=== PATIENT | female | born 1990 | race Caucasian/White ===

== ENCOUNTER → 2021-08-04 | Outpatient (CLI) | payer OTHER ==
--- NOTE | 2021-08-04 13:55 | REP ---
INDICATION: ELSA HIP MASSES ? CYST VS SOLID. COMPARISON: None. TECHNIQUE: Sonographic evaluation of both right and left hip region over a palpable mass. FINDINGS: There are no cystic or solid masses. IMPRESSION: A negative ultrasound examination does not obviate further anatomical imaging with modalities such as gadolinium-enhanced MRI which should be considered if a mass is of clinical concern. <Electronically signed by Danny Mg > 08/04/21 [id number]
== END ==
LOC: M RAD 13:07
PROVIDERS: ATTEND Physician Assistant
DX: R22.43 Localized swelling, mass and lump, lower limb, bilateral (principal)

== ENCOUNTER → 2022-03-09 | Outpatient (CLI) | payer OTHER ==
[~2022-03-09] MED LIST: OMEGA-3 1000MG CAPSULE ONE; PROHANCE 279.3MG/ML 15ML VIAL ONE
== END ==
LOC: M PLAIMG 09:48
PROVIDERS: ATTEND Family Medicine
DX: R22.40 Localized swelling, mass and lump, unspecified lower limb (principal)